=== PATIENT | female | born 1985 | race Two or more races ===

== ENCOUNTER 2020-12-04 13:20 | Emergency (ER) | payer SELFPAY ==
[~2020-12-04] VITALS: Ht 154.9 cm; Wt 58.2 kg
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
[2020-12-04 15:52] LABS: BASO % 1 % (0-3); EOS # 0.1 x10^3/uL (0.0-0.7); EOS % 2 % (0-3); HEMATOCRIT 39.7 % (36.0-47.0); HEMOGLOBIN 13.7 g/dL (12.0-15.5); LYMPH # 2.2 x10^3/uL (1.0-4.8); LYMPH % 29 % (24-48); MEAN CORPUSCULAR HEMOGLOBIN 31 pg (25-35); MEAN CORPUSCULAR HGB CONC 35 g/dL (31-37); MEAN CORPUSCULAR VOLUME 91 fL (79-100); MONO # 0.5 x10^3/uL (0.0-1.1); MONO % 6 % (0-9); NEUT # 4.7 x10^3/uL (1.8-7.7); NEUT % 62 % (31-73); PLATELET COUNT 303 x10^3/uL (140-400); RED BLOOD COUNT 4.35 x10^6/uL (3.50-5.40); RED CELL DISTRIBUTION WIDTH 12.4 % (11.5-14.5); WHITE BLOOD COUNT 7.6 x10^3/uL (4.0-11.0)
[2020-12-04 15:54] LABS: BILIRUBIN,URINE NEGATIVE (NEG); CLARITY,URINE CLEAR; NITRITE,URINE NEGATIVE (NEG); PROTEIN,URINE NEGATIVE (NEG-TRACE)
[2020-12-04 16:05] LABS: CREATININE 0.8 mg/dL (0.6-1.0); GFR 82.1; POTASSIUM 3.6 mmol/L (3.5-5.1)
[2020-12-04 16:10] LABS: ALBUMIN 3.9 g/dL (3.4-5.0); TOTAL BILIRUBIN 0.5 mg/dL (0.2-1.0)
[2020-12-04 16:11] LABS: BACTERIA,URINE FEW /HPF (0-FEW); COLOR,URINE YELLOW
[2020-12-04 16:12] LABS: AMORPHOUS SEDIMENT,UR PRESENT /HPF
[2020-12-04 16:13] LABS: RBC,URINE 0 /HPF (0-2)
[2020-12-04] MEDS ORDERED: IOHEXOL 240 MG/ML 50ML VIAL. PO ONE (16:45)
[2020-12-04] MEDS ORDERED: IOHEXOL 300 MG/ML 100ML VIAL. IV ONE (16:45)
[2020-12-04] MEDS ORDERED: CONTRAST GIVEN. MC PRN (17:00)
--- NOTE | 2020-12-04 17:27 | RAD ---
CT CERVICAL SPINE WO History:Reason: Pain Technique: Noncontrast CT imaging was performed of the cervical spine. Multiplanar images are reviewe d. Exposure: One or more of the following individualized dose reduction techniques were utilized for thi s examination: 1. Automated exposure control 2. Adjustment of the mA and/or kV according to patient size 3. Use of iterative reconstruction technique. Comparison: None Findings: Normal vertebral body height. Normal alignment. No fracture. Disc spaces are well-maintained. No high -grade canal or neuroforaminal narrowing. Soft tissues unremarkable. Impression: 1. No acute fracture or subluxation of the cervical spine. Electronically signed by: Lucien Santos DO (12/04/2020 5:25 PM) [facility]
--- NOTE | 2020-12-04 17:31 | RAD ---
INDICATION: Reason: trauma, abd pain, hematuria / Spl. Instructions: / History: . COMPARISON: None. TECHNIQUE: Axial CT images obtained through the abdomen and pelvis with contrast. One or more of the following individualized dose reduction techniques were utilized for this examinat ion: 1. Automated exposure control; 2. Adjustment of the mA and/or kV according to patient size; 3 . Use of iterative reconstruction technique. FINDINGS: Abdominal aorta is not aneurysmal. No intrahepatic bile duct dilation. No perihepatic hemorrhage. No peripancreatic fluid collection. No splenic hemorrhage. No hydronephrosis or renal hemorrhage. Urinary bladder is distended at time of exam without adjacent hemorrhage. Left adnexal cystic lesion measuring 27 mm. The appendix does not appear dilated. There is couple of prominent loops of small bowel which could be from phase of peristalsis. Small fat-containing umbilical hernia. There is some sclerotic foci in osseous structures which is most commonly from bone island. Mild degenerative changes the spine without acute fracture or dislocation IMPRESSION: * No solid organ or vascular injury. Electronically signed by: Robert Stinson MD (12/04/2020 5:29 PM) [id number]
[2020-12-04] MEDS ORDERED: METH-561 PO (18:14)
[2020-12-04 18:58] VITALS: BP 107/64
== END 2020-12-04 18:54 | disposition home or self-care (01) ==
LOC: ER 13:20
DX: S30.1XXA Contusion of abdominal wall, initial encounter (principal); M54.2 Cervicalgia; Z88.0 Allergy status to penicillin; V47.5XXA Car driver injured in collision with fixed or stationary object in traffic accident, initial encounter; Y92.488 Other paved roadways as the place of occurrence of the external cause; Y93.89 Activity, other specified; Y99.8 Other external cause status
CPT/HCPCS: 36415; 72125; 74177; 80053; 81001; 81025; 82550; 85025; 99285; Q9966; Q9967